=== PATIENT | female | born 1995 | race Caucasian/White ===

== ENCOUNTER 2017-03-16 19:02 | Emergency (ER) | payer OTHER ==
[~2017-03-16] VITALS: Ht 157.5 cm; Wt 61.2 kg
[2017-03-16 19:02] VITALS: BP 120/75
[~2017-03-16 19:02] MED LIST: AMOXICILLIN 50500 MG PO; HYDROXYZINE HCL25 M1 PO; IBUPROFEN 600600 M1 PO; LEXAPRO 10 MG T10 M1 PO; NEURONTIN250 MG/5 M PO; TRAZODONE HCL100 MG PO
[2017-03-16] MEDS ORDERED: KEFLEX500 MG PO (19:15)
[2017-03-16] MEDS ORDERED: BACTRIM DS TAB1 EACH PO (19:15)
== END 2017-03-16 19:30 | disposition home or self-care (01) ==
LOC: ER 19:02
DX: L02.01 Cutaneous abscess of face (principal); R59.1 Generalized enlarged lymph nodes; F41.9 Anxiety disorder, unspecified; F32.9 Major depressive disorder, single episode, unspecified; F17.210 Nicotine dependence, cigarettes, uncomplicated

== ENCOUNTER 2019-04-03 21:19 | Emergency (ER) | payer OTHER ==
[~2019-04-03] VITALS: Ht 160 cm; Wt 61.2 kg
[~2019-04-03 21:19] MED LIST changes: +BACTRIM DS TAB1 EACH PO; +KEFLEX500 MG PO
[2019-04-03 23:16] VITALS: BP 99/61
== END 2019-04-03 23:00 | disposition home or self-care (01) ==
LOC: ER 21:19
DX: S60.022A Contusion of left index finger without damage to nail, initial encounter (principal); S40.012A Contusion of left shoulder, initial encounter; F17.210 Nicotine dependence, cigarettes, uncomplicated; F41.9 Anxiety disorder, unspecified; F32.9 Major depressive disorder, single episode, unspecified; V49.49XA Driver injured in collision with other motor vehicles in traffic accident, initial encounter; Y93.89 Activity, other specified; Y92.89 Other specified places as the place of occurrence of the external cause; Y99.8 Other external cause status

== ENCOUNTER 2019-07-08 18:42 | Emergency (ER) | payer OTHER ==
[~2019-07-08] VITALS: Ht 160 cm; Wt 61.2 kg
[2019-07-08 18:47] VITALS: BP 117/70
[2019-07-08] MEDS ORDERED: KEFLEX500 M1 PO (20:21)
== END 2019-07-08 22:16 | disposition home or self-care (01) ==
LOC: ER 18:42
DX: K04.7 Periapical abscess without sinus (principal); F41.9 Anxiety disorder, unspecified; F32.9 Major depressive disorder, single episode, unspecified; Z88.6 Allergy status to analgesic agent; Z87.891 Personal history of nicotine dependence

== ENCOUNTER 2019-07-28 20:47 | Emergency (ER) | payer OTHER ==
[~2019-07-28] VITALS: Ht 157.5 cm; Wt 56.7 kg
[~2019-07-28 20:47] MED LIST changes: +KEFLEX500 M1 PO
[2019-07-28 20:48] VITALS: BP 126/87
[2019-07-28] MEDS ORDERED: PRENATAL PO (20:55)
== END 2019-07-28 22:00 | disposition home or self-care (01) ==
LOC: ER 20:47
DX: S51.811A Laceration without foreign body of right forearm, initial encounter (principal); F41.9 Anxiety disorder, unspecified; F32.9 Major depressive disorder, single episode, unspecified; F17.210 Nicotine dependence, cigarettes, uncomplicated; Z88.6 Allergy status to analgesic agent; W25.XXXA Contact with sharp glass, initial encounter; Y93.89 Activity, other specified; Y92.89 Other specified places as the place of occurrence of the external cause; Y99.8 Other external cause status

== ENCOUNTER 2019-11-05 12:30 | Emergency (ER) | payer OTHER ==
[~2019-11-05] VITALS: Ht 157.5 cm; Wt 57.6 kg
[~2019-11-05 12:30] MED LIST changes: +PRENATAL PO
[2019-11-05 12:36] VITALS: BP 134/85
== END 2019-11-05 13:21 | disposition home or self-care (01) ==
LOC: ER 12:30
DX: Z32.02 Encounter for pregnancy test, result negative (principal); F41.9 Anxiety disorder, unspecified; F32.9 Major depressive disorder, single episode, unspecified; F17.210 Nicotine dependence, cigarettes, uncomplicated; Z86.14 Personal history of Methicillin resistant Staphylococcus aureus infection; Z88.6 Allergy status to analgesic agent

== ENCOUNTER 2020-01-26 08:35 | Emergency (ER) | payer OTHER ==
[~2020-01-26] VITALS: Ht 157.5 cm; Wt 61.2 kg
[2020-01-26 08:40] VITALS: BP 124/69
[2020-01-26 09:25] LABS: ABSOLUTE NEUTROPHILS 7.2 thou/uL (1.4-8.2); BASOPHILS 0.5 % (0.0-2.0); EOSINOPHILS 3.4 % (0.0-3.0); HEMATOCRIT 38.7 % (37.0-47.0); HEMOGLOBIN 12.7 gm/dL (12.0-15.0); LYMPHOCYTES 16.3 % (24.0-44.0); MCH 29.6 pg (26.0-34.0); MCHC 32.9 g/dL (28.0-37.0); MCV 90.1 fL (80.0-100.0); MONOCYTES 7.4 % (1.0-8.0); PLATELET COUNT 186 thou/uL (150-400); POLYS 72.4 % (36.0-66.0); RDW 13.5 % (10.5-14.5); WBC 9.9 thou/uL (4.0-11.0)
[2020-01-26] MEDS ORDERED: CLEOCIN HCL300 MG PO (10:04)
== END 2020-01-26 10:14 | disposition home or self-care (01) ==
LOC: ER
PROVIDERS: Emergency Medicine
DX: O26.891 Other specified pregnancy related conditions, first trimester (principal); R59.0 Localized enlarged lymph nodes; O99.611 Diseases of the digestive system complicating pregnancy, first trimester; K08.89 Other specified disorders of teeth and supporting structures; O99.331 Smoking (tobacco) complicating pregnancy, first trimester; Z3A.11 11 weeks gestation of pregnancy; Z88.6 Allergy status to analgesic agent; Z88.5 Allergy status to narcotic agent

== ENCOUNTER 2020-03-16 01:35 | Emergency (ER) | payer OTHER ==
[~2020-03-16] VITALS: Ht 157.5 cm; Wt 65.8 kg
[~2020-03-16 01:35] MED LIST changes: +CLEOCIN HCL300 MG PO
[2020-03-16] MEDS ORDERED: PRENATAL PO (01:58)
[2020-03-16] MEDS ORDERED: SUPER THERAVIT1 EACH PO (01:58)
[2020-03-16 02:36] LABS: URINE BILIRUBIN NEGATIVE (Negative); URINE BLOOD TRACE (Negative); URINE CLARITY SL HAZY; URINE COLOR YELLOW; URINE GLUCOSE-RANDOM* NEGATIVE (Negative); URINE KETONES NEGATIVE (Negative); URINE LEUKOCYTES-REFLEX 1+ (Negative); URINE NITRITE-REFLEX NEGATIVE (Negative); URINE PROTEIN (DIPSTICK) NEGATIVE (Negative); URINE SPECIFIC GRAVITY 1.025 (1.005-1.035); URINE UROBILINOGEN 0.2 E.U./dl (0.2-1.0)
[2020-03-16 02:37] LABS: ABSOLUTE NEUTROPHILS 6.8 thou/uL (1.4-8.2); BASOPHILS 0.8 % (0.0-2.0); EOSINOPHILS 2.7 % (0.0-3.0); HEMATOCRIT 35.1 % (37.0-47.0); HEMOGLOBIN 11.7 gm/dL (12.0-15.0); LYMPHOCYTES 24.6 % (24.0-44.0); MCH 30.1 pg (26.0-34.0); MCHC 33.4 g/dL (28.0-37.0); MCV 90.2 fL (80.0-100.0); MONOCYTES 7.5 % (1.0-8.0); PLATELET COUNT 187 thou/uL (150-400); POLYS 64.4 % (36.0-66.0); RBC 3.89 mil/uL (4.20-5.00); RDW 13.3 % (10.5-14.5); WBC 10.6 thou/uL (4.0-11.0)
[2020-03-16 02:39] LABS: BACTERIA-REFLEX 1-9 Few /HPF (None Seen); CASTS None Seen /LPF (None Seen); CRYSTALS None Seen /LPF (None Seen); MUCUS 4-6 Moderate strn/LPF (None Seen); SQUAMOUS 4-10 Moderate /LPF (0-3); URINE RBC 0-2 Rare /HPF (0-2); URINE WBC-REFLEX 0-5 Rare /HPF (0-5); YEAST-REFLEX Present (None Seen)
[2020-03-16 02:47] LABS: CALCIUM 8.9 mg/dL (8.5-10.1); CREATININE 0.6 mg/dL (0.6-1.0); POTASSIUM 4.1 mmol/L (3.5-5.1)
[2020-03-16 02:53] LABS: ALBUMIN 2.9 g/dL (3.4-5.0); TOTAL BILIRUBIN 0.2 mg/dL (<0.1-1.0); TOTAL PROTEIN 6.5 g/dL (6.4-8.2)
[2020-03-16] MEDS ORDERED: PNV 29-1 TABLE1 EACH PO (03:05)
[2020-03-16] MEDS ORDERED: MIRALAX119 GM PO (03:05)
[2020-03-16 03:26] VITALS: BP 123/88
== END 2020-03-16 03:15 | disposition home or self-care (01) ==
LOC: ER 01:35
PROVIDERS: Emergency Medicine
DX: O26.892 Other specified pregnancy related conditions, second trimester (principal); R10.31 Right lower quadrant pain; O99.332 Smoking (tobacco) complicating pregnancy, second trimester; Z3A.15 15 weeks gestation of pregnancy

== ENCOUNTER 2020-04-22 06:16 | Emergency (ER) | payer OTHER ==
[~2020-04-22] VITALS: Ht 157.5 cm; Wt 62.1 kg
[~2020-04-22 06:16] MED LIST changes: +MIRALAX119 GM PO; +PNV 29-1 TABLE1 EACH PO; +SUPER THERAVIT1 EACH PO
[2020-04-22 06:42] LABS: URINE BILIRUBIN NEGATIVE (Negative); URINE BLOOD NEGATIVE (Negative); URINE CLARITY CLEAR; URINE COLOR YELLOW; URINE GLUCOSE-RANDOM* NEGATIVE (Negative); URINE KETONES NEGATIVE (Negative); URINE NITRITE-REFLEX NEGATIVE (Negative); URINE PROTEIN (DIPSTICK) NEGATIVE (Negative); URINE SPECIFIC GRAVITY 1.015 (1.005-1.035); URINE UROBILINOGEN 0.2 E.U./dl (0.2-1.0)
[2020-04-22 06:56] LABS: URINE LEUKOCYTES-REFLEX 1+ (Negative)
[2020-04-22 07:39] LABS: ABSOLUTE NEUTROPHILS 5.9 thou/uL (1.4-8.2); BASOPHILS 0.6 % (0.0-2.0); EOSINOPHILS 2.2 % (0.0-3.0); HEMATOCRIT 32.6 % (37.0-47.0); HEMOGLOBIN 11.2 gm/dL (12.0-15.0); LYMPHOCYTES 20.6 % (24.0-44.0); MCH 31.3 pg (26.0-34.0); MCHC 34.2 g/dL (28.0-37.0); MCV 91.4 fL (80.0-100.0); PLATELET COUNT 168 thou/uL (150-400); POLYS 68.6 % (36.0-66.0); RBC 3.57 mil/uL (4.20-5.00); RDW 13.5 % (10.5-14.5); WBC 8.5 thou/uL (4.0-11.0)
[2020-04-22 07:49] LABS: CALCIUM 8.2 mg/dL (8.5-10.1); CREATININE 0.6 mg/dL (0.6-1.0); POTASSIUM 3.6 mmol/L (3.5-5.1)
[2020-04-22 07:55] LABS: ALBUMIN 2.6 g/dL (3.4-5.0); TOTAL BILIRUBIN 0.2 mg/dL (0.2-1.0); TOTAL PROTEIN 6.2 g/dL (6.4-8.2)
[2020-04-22 08:01] LABS: AMP/METHAMP Negative (Negative); BARBITURATES Negative (Negative); BENZODIAZEPINES Negative (Negative); COCAINE Negative (Negative); METHADONE Negative (Negative); OPIATES Negative (Negative); PCP Negative (Negative)
[2020-04-22 08:15] VITALS: BP 108/59
[2020-04-22 08:59] LABS: BACTERIA-REFLEX 1-9 Few /HPF (None Seen); CASTS None Seen /LPF (None Seen); CRYSTALS None Seen /LPF (None Seen); SQUAMOUS >10 Many /LPF (0-3); URINE RBC 0-2 Rare /HPF (0-2); URINE WBC-REFLEX 0-5 Rare /HPF (0-5)
== END 2020-04-22 08:15 | disposition home or self-care (01) ==
LOC: ER 06:16
PROVIDERS: Emergency Medicine
DX: O26.892 Other specified pregnancy related conditions, second trimester (principal); R10.31 Right lower quadrant pain; R10.32 Left lower quadrant pain; R35.0 Frequency of micturition; O99.332 Smoking (tobacco) complicating pregnancy, second trimester; F17.210 Nicotine dependence, cigarettes, uncomplicated; Z88.5 Allergy status to narcotic agent; Z3A.19 19 weeks gestation of pregnancy

== ENCOUNTER 2020-10-05 16:18 | Emergency (ER) | payer OTHER ==
[~2020-10-05] VITALS: Ht 157.5 cm; Wt 65.8 kg
[2020-10-05 16:18] VITALS: BP 119/75
[2020-10-05] MEDS ORDERED: KEFLEX500 M1 PO (17:08)
== END 2020-10-05 19:50 | disposition home or self-care (01) ==
LOC: ER 16:18
DX: S61.411A Laceration without foreign body of right hand, initial encounter (principal); F17.210 Nicotine dependence, cigarettes, uncomplicated; W26.8XXA Contact with other sharp object(s), not elsewhere classified, initial encounter; Y93.89 Activity, other specified; Y92.89 Other specified places as the place of occurrence of the external cause; Y99.8 Other external cause status

== ENCOUNTER 2021-04-06 13:18 | Emergency (ER) | payer OTHER ==
[~2021-04-06] VITALS: Ht 157.5 cm; Wt 62.6 kg
[2021-04-06] MEDS ORDERED: MOBIC7.5 MG PO (16:26)
[2021-04-06 16:47] VITALS: BP 86/53
== END 2021-04-06 16:46 | disposition home or self-care (01) ==
LOC: ER 13:18
DX: S93.491A Sprain of other ligament of right ankle, initial encounter (principal); M79.671 Pain in right foot; F17.210 Nicotine dependence, cigarettes, uncomplicated; Z88.5 Allergy status to narcotic agent; X50.1XXA Overexertion from prolonged static or awkward postures, initial encounter; Y93.89 Activity, other specified; Y92.89 Other specified places as the place of occurrence of the external cause; Y99.9 Unspecified external cause status